=== PATIENT | female | born 1965 ===

== ENCOUNTER 2022-08-07 15:49 | Outpatient (REF) | payer MEDICAID, SELFPAY ==
[2022-08-07 21:43] LABS: Calculated LDL 47 mg/dL (<100); Cholesterol 165 mg/dL (<200); HDL Cholesterol 60 mg/dL (40-60); TSH (W/Ref FT4) 1.59 uIU/mL (0.36-3.74); Triglyceride 290 mg/dL (<150)
== END 2022-08-07 15:50 | disposition home or self-care (01) ==
LOC: NCHCN 15:49
PROVIDERS: Visit Provider Family Medicine
DX: R94.6 Abnormal results of thyroid function studies (principal); E78.1 Pure hyperglyceridemia; R82.998 Other abnormal findings in urine; Z87.448 Personal history of other diseases of urinary system
CPT/HCPCS: 80061; 84443; 87086